=== PATIENT | female | born 1995 | race Caucasian/White ===

== ENCOUNTER 2016-05-11 19:53 | Emergency (ER) | payer OTHER ==
[~2016-05-11] VITALS: Ht 160 cm; Wt 50.5 kg
[~2016-05-11 19:53] MED LIST: BACTRIM,SEPT1 TABLET PO; DOXYCYCLINE HY100 MG PO; MOTRIN800 MG PO; NORCO 5/3251 TABLET PO; PERCOCET 5/31 TABLET PO; VICODIN 5-3001 EACH PO
[2016-05-11 20:45] LABS: ADD MIUA? YES; BILIRUBIN NEGATIVE; BLOOD NEGATIVE; COLOR YELLOW ((YELLOW)); GLUCOSE (STRIP) NEGATIVE; KETONES NEGATIVE; LEUKOCYTES TRACE; NITRITE NEGATIVE; PH, URINE 7.5 (5-8); PROTEIN (STRIP) NEGATIVE
[2016-05-11 20:52] LABS: HEMATOCRIT 43.7 % (36.0-46.0); MCH 31.7 PG (29.0-34.0); MCHC 34.1 G/DL (30.0-36.0); MEAN PLAT.VOLUME 12.1 uM^3 (9.5-12.4); PLATELET COUNT 183 K/uL (156-360); WHITE BLOOD COUNT 7.9 K/uL (4.1-10.2)
[2016-05-11 21:05] LABS: CHLORIDE 106 mEq/L (99-109); POTASSIUM 3.7 mEq/L (3.7-5.4); SODIUM 141 mEq/L (136-147)
[2016-05-11 21:07] LABS: GLUCOSE 75 mg/dL (70-99)
[2016-05-11 21:09] LABS: ANION GAP 10 MEQ/L (2-14); TOTAL BILIRUBIN 0.6 mg/dL (0.0-1.0)
[2016-05-11 21:11] LABS: ALKALINE PHOSPHATASE 65 IU/L (3-129); GFR ESTIMATE (CALCULATED) > 59 mL/min/
[2016-05-11 21:12] LABS: UREA NITROGEN (BUN) 7 mg/dL (9-23)
[2016-05-11 21:16] LABS: AMORPHOUS PHOSPHATE CRYSTALS 1+; BACTERIA 1+; CASTS NONE SEEN /LPF; CRYSTALS PRESENT; MUCUS 1+; RED BLOOD CELLS 0-5 /HPF (0-5); UCUL ADDED? NO; WHITE BLOOD CELLS 0-5 /HPF (0-5)
[2016-05-11 21:17] LABS: EPITHELIAL CELLS RARE
[2016-05-11 21:23] LABS: QUANTITATIVE HCG < 4.0 MIU/ML
[2016-05-11] MEDS ORDERED: TESTOSTERO200 MG/12 IM (22:44)
[2016-05-12] MEDS ORDERED: NORCO 7.5/321 TABLET PO (00:56)
[2016-05-12] MEDS ORDERED: ZOFRAN ODT4 MG PO (00:56)
[2016-05-12] MEDS ORDERED: MOTRIN800 MG PO (00:56)
[2016-05-12] MEDS ORDERED: FLOMAX0.4 MG PO (00:58)
[2016-05-12 02:00] VITALS: BP 109/68
== END 2016-05-12 02:03 | disposition home or self-care (01) ==
LOC: RME 19:53 → EME 19:53 → RME 05-12 02:03
DX: N20.1 Calculus of ureter (principal); Z87.442 Personal history of urinary calculi
CPT/HCPCS: 74177; 80053; 81003; 84702; 85027; 87086; 99281; 99284; J3010; J7030

== ENCOUNTER 2016-09-13 13:10 | Emergency (ER) | payer OTHER ==
[~2016-09-13] VITALS: Ht 160 cm; Wt 49.0 kg
[~2016-09-13 13:10] MED LIST changes: +FLOMAX0.4 MG PO; +NORCO 7.5/321 TABLET PO; +TESTOSTERO200 MG/12 IM; +ZOFRAN ODT4 MG PO
[2016-09-13 13:46] LABS: ADD MIUA? YES; BILIRUBIN NEGATIVE; BLOOD LARGE; COLOR YELLOW ((YELLOW)); GLUCOSE (STRIP) NEGATIVE; KETONES NEGATIVE; LEUKOCYTES TRACE; NITRITE NEGATIVE; PROTEIN (STRIP) NEGATIVE; SPECIFIC GRAVITY 1.015 (1.000-1.030); UROBILINOGEN 0.2 MG/DL (0.2-1.0)
[2016-09-13 14:06] LABS: BACTERIA NONE SEEN /HPF; EPITHELIAL CELLS NONE SEEN /HPF; MUCUS 2+ /LPF; RED BLOOD CELLS TNTC /HPF (0-5); UCUL ADDED? NO; WHITE BLOOD CELLS 0-5 /HPF (0-5)
[2016-09-13 14:45] LABS: HEMATOCRIT 44.4 % (36.0-46.0); MCH 31.3 PG (29.0-34.0); MCHC 33.8 G/DL (30.0-36.0); MCV 92.7 FL (83-99); RBC DIS.WIDTH-CV 11.7 % (11.8-14.6); RBC DIS.WIDTH-SD 39.9 % (39-53); RED BLOOD COUNT 4.79 M/uL (3.80-5.20); WHITE BLOOD COUNT 8.4 K/uL (4.1-10.2)
[2016-09-13 14:56] LABS: CHLORIDE 108 mEq/L (99-109); POTASSIUM 4.2 mEq/L (3.7-5.4); SODIUM 140 mEq/L (136-147)
[2016-09-13 14:58] LABS: GLUCOSE 77 mg/dL (70-99)
[2016-09-13 14:59] LABS: ANION GAP 9 MEQ/L (2-14)
[2016-09-13 15:01] LABS: ALKALINE PHOSPHATASE 60 IU/L (3-129)
[2016-09-13 15:02] LABS: GFR ESTIMATE (CALCULATED) > 59 mL/min/
[2016-09-13 15:03] LABS: UREA NITROGEN (BUN) 9 mg/dL (9-23)
[2016-09-13 15:11] LABS: QUANTITATIVE HCG < 4.0 MIU/ML
[2016-09-13] MEDS ORDERED: ZOFRAN ODT4 MG PO (15:58)
[2016-09-13] MEDS ORDERED: FLOMAX0.4 MG PO (15:58)
[2016-09-13] MEDS ORDERED: MOTRIN800 MG PO (15:58)
[2016-09-13 15:59] LABS: PLAT.SUFFICIENCY ADEQUATE; PLATELET CLUMPS PRESENT - PLATELET COUNT APPEARS ADQ.; PLATELET COUNT UNABLE TO REPORT K/uL (156-360)
[2016-09-13 16:03] VITALS: BP 110/75
== END 2016-09-13 16:03 | disposition home or self-care (01) ==
LOC: EXP 13:10 → EME 13:10 → EXP 16:03
PROVIDERS: Nurse Practitioner Family
DX: N13.2 Hydronephrosis with renal and ureteral calculous obstruction (principal); R31.9 Hematuria, unspecified
CPT/HCPCS: 74000; 74176; 80053; 81003; 84702; 85027; 99281; 99283